=== PATIENT | male | born 1965 | race African-American/Black ===

== ENCOUNTER 2017-02-20 01:57 | Inpatient (IN) | payer MEDICAID ==
[2017-02-20] VITALS (9 sets, daily range): BP systolic 156–199; BP diastolic 94–116
[~2017-02-20] VITALS: Ht 180.3 cm; Wt 100.0 kg
[~2017-02-20 01:57] MED LIST: DIPH25CA85 PO; HTN MED; NITR2.5 PO
[2017-02-20 02:58] LABS: ANION GAP 11 mmol/L (8-16); CALCIUM, TOTAL 8.6 mg/dL (8.8-10.5); CARBON DIOXIDE 28 mmol/L (22-29); CHLORIDE 103 mmol/L (98-107); CREATININE 1.44 mg/dL (0.60-1.30); GLOMERULAR FILTR. RATE CALC > 60 mL/min (>60); POTASSIUM 3.3 mmol/L (3.5-5.1); SODIUM SERUM 142 mmol/L (136-145); UREA NITROGEN, BLOOD 17 mg/dL (7-18)
[2017-02-20 02:59] LABS: INR 1.1 (0.9-1.1)
[2017-02-20 03:07] LABS: BASOPHILS % (AUTO) 0.5 % (0.0-2.0); EOSINOPHILS % (AUTO) 2.9 % (1.0-6.0); HEMATOCRIT 37.9 % (41-53); HEMOGLOBIN 12.3 g/dL (13.5-17.5); LYMPHOCYTES # (AUTO) 2.2 K/uL (1.0-4.8); LYMPHOCYTES % (AUTO) 27.2 % (22.0-44.0); MEAN CORPUSCULAR HEMOGLOBIN 24.9 pg (26.0-34.0); MEAN CORPUSCULAR HGB CONC 32.3 G/dL (31.0-37.0); MEAN CORPUSCULAR VOLUME 77 fL (80-100); MONOCYTES # (AUTO) 0.7 K/uL (0.1-1.0); MONOCYTES % (AUTO) 9.3 % (2.0-9.0); NEUTROPHILS # (AUTO) 4.8 K/uL (1.8-7.7); NEUTROPHILS % (AUTO) 60.1 % (40.0-70.0); PLATELET COUNT (AUTO) 202 K/uL (150-450); RED BLOOD CELL COUNT(AUTO) 4.92 MIL/uL (4.50-5.90); RED CELL DISTRIBUTION WIDTH 17.4 % (11.5-14.5); WHITE BLOOD COUNT (AUTO) 7.9 K/uL (4.5-11.0)
[2017-02-20 03:23] LABS: ALANINE AMINOTRANSFERASE 21 U/L (12-78); ASPARTATE AMINOTRANSFERASE 19 U/L (15-37); BILIRUBIN,TOTAL 0.6 mg/dL (0.1-1.0); CREATINE KINASE MB 3.1 ng/mL (0-5); CREATINE KINASE, TOTAL 423 U/L (39-308); TOTAL PROTEIN, SERUM 8.1 g/dL (6.4-8.2)
[2017-02-20 03:31] LABS: B-TYPE NATRIURETIC PEPTIDE 128 pg/mL (0-100)
[2017-02-20] MEDS ORDERED: ASPIRIN 81 MG CHEWABLE TABLET PO ONE (03:45)
[2017-02-20] MEDS ORDERED: NITROGLYCERIN 2% (1 GM=INCH) PACKET TP ONE (03:45)
[2017-02-20 03:50] LABS: RBC MORPHOLOGY COMMENT ABNORMAL RBC MORPH
[2017-02-20] MEDS ORDERED: ACETAMINOPHEN 325 MG TABLET PO PRN ×2 (04:00→08:00)
[2017-02-20] MEDS ORDERED: ONDANSETRON HCL 4 MG/2 ML VIAL IVP PRN (04:00)
[2017-02-20] MEDS ORDERED: 0.9% SODIUM CHLORIDE 10 ML SYRINGE IVP PRN (04:00)
[2017-02-20] MEDS ORDERED: NITROGLYCERIN 2% (1 GM=INCH) PACKET TP PRN (08:00)
[2017-02-20] MEDS ORDERED: MORPHINE SULFATE 2 MG/ML SYRINGE IVP PRN (08:00)
[2017-02-20] MEDS ORDERED: NITROGLYCERIN 0.4 MG SUBLINGUAL TABLET #25 SL PRN (08:00)
[2017-02-20] MEDS ORDERED: ASPIRIN 325 MG TABLET PO SCH (09:00)
[2017-02-20] MEDS ORDERED: POTASSIUM CHLORIDE 20 MEQ ER TABLET PO ONE (09:00)
[2017-02-20] MEDS ORDERED: NIFEdipine 30 MG ER TABLET PO SCH (09:00)
[2017-02-20] MEDS: LISINOPRIL 10 MG TABLET PO SCH (10:09)
[2017-02-20] MEDS: ASPIRIN 81 MG EC TABLET PO SCH (10:10)
[2017-02-20] MEDS ORDERED: NIFEdipine 30 MG ER TABLET PO ONE (13:30)
[2017-02-20] MEDS: HydrALAZINE HCL 20 MG/ML VIAL IVP PRN ×2 (13:36→16:44)
[2017-02-20] MEDS: LABETALOL HCL 200 MG TABLET PO SCH (20:00)
[2017-02-21] VITALS (8 sets, daily range): BP systolic 149–181; BP diastolic 84–104
[2017-02-21] MEDS: ZOLPIDEM TARTRATE 5 MG TABLET PO PRN ×2 (01:28→20:10)
[2017-02-21 06:59] LABS: BASOPHILS % (AUTO) 0.8 % (0.0-2.0); EOSINOPHILS % (AUTO) 4.2 % (1.0-6.0); HEMATOCRIT 42.6 % (41-53); HEMOGLOBIN 13.6 g/dL (13.5-17.5); LYMPHOCYTES # (AUTO) 1.9 K/uL (1.0-4.8); LYMPHOCYTES % (AUTO) 22.8 % (22.0-44.0); MEAN CORPUSCULAR HEMOGLOBIN 24.8 pg (26.0-34.0); MEAN CORPUSCULAR HGB CONC 31.9 G/dL (31.0-37.0); MEAN CORPUSCULAR VOLUME 78 fL (80-100); MONOCYTES # (AUTO) 0.7 K/uL (0.1-1.0); MONOCYTES % (AUTO) 8.5 % (2.0-9.0); NEUTROPHILS # (AUTO) 5.2 K/uL (1.8-7.7); NEUTROPHILS % (AUTO) 63.7 % (40.0-70.0); PLATELET COUNT (AUTO) 203 K/uL (150-450); RED BLOOD CELL COUNT(AUTO) 5.48 MIL/uL (4.50-5.90); RED CELL DISTRIBUTION WIDTH 17.2 % (11.5-14.5); WHITE BLOOD COUNT (AUTO) 8.2 K/uL (4.5-11.0)
[2017-02-21 07:19] LABS: RBC MORPHOLOGY COMMENT ABNORMAL RBC MORPH
[2017-02-21 07:28] LABS: ALANINE AMINOTRANSFERASE 22 U/L (12-78); ANION GAP 13 mmol/L (8-16); ASPARTATE AMINOTRANSFERASE 16 U/L (15-37); CALCIUM, TOTAL 8.9 mg/dL (8.8-10.5); CARBON DIOXIDE 26 mmol/L (22-29); CHLORIDE 104 mmol/L (98-107); CREATININE 1.34 mg/dL (0.60-1.30); GLOMERULAR FILTR. RATE CALC > 60 mL/min (>60); POTASSIUM 3.5 mmol/L (3.5-5.1); SODIUM SERUM 143 mmol/L (136-145); TOTAL PROTEIN, SERUM 7.8 g/dL (6.4-8.2); UREA NITROGEN, BLOOD 13 mg/dL (7-18)
[2017-02-21] MEDS: ASPIRIN 81 MG EC TABLET PO SCH (08:23)
[2017-02-21] MEDS: LABETALOL HCL 200 MG TABLET PO SCH ×2 (08:23→20:10)
[2017-02-21] MEDS: LISINOPRIL 10 MG TABLET PO SCH (08:23)
[2017-02-21] MEDS ORDERED: NIFEdipine 30 MG ER TABLET PO SCH (09:00)
[2017-02-21] MEDS: HydrALAZINE HCL 20 MG/ML VIAL IVP PRN ×3 (11:57→17:59)
[2017-02-22 05:05] VITALS: BP 102/87
[2017-02-22 06:36] LABS: BASOPHILS % (AUTO) 0.8 % (0.0-2.0); EOSINOPHILS % (AUTO) 4.2 % (1.0-6.0); HEMATOCRIT 41.5 % (41-53); HEMOGLOBIN 13.4 g/dL (13.5-17.5); LYMPHOCYTES % (AUTO) 25.2 % (22.0-44.0); MEAN CORPUSCULAR HEMOGLOBIN 25.1 pg (26.0-34.0); MEAN CORPUSCULAR HGB CONC 32.3 G/dL (31.0-37.0); MEAN CORPUSCULAR VOLUME 78 fL (80-100); MONOCYTES # (AUTO) 0.7 K/uL (0.1-1.0); MONOCYTES % (AUTO) 9.6 % (2.0-9.0); NEUTROPHILS # (AUTO) 4.7 K/uL (1.8-7.7); NEUTROPHILS % (AUTO) 60.2 % (40.0-70.0); PLATELET COUNT (AUTO) 214 K/uL (150-450); RED BLOOD CELL COUNT(AUTO) 5.34 MIL/uL (4.50-5.90); RED CELL DISTRIBUTION WIDTH 16.6 % (11.5-14.5); WHITE BLOOD COUNT (AUTO) 7.8 K/uL (4.5-11.0)
[2017-02-22 07:35] VITALS: BP 128/97
[2017-02-22 07:40] LABS: ALANINE AMINOTRANSFERASE 17 U/L (12-78); ALBUMIN 3.9 g/dL (3.4-5.0); ANION GAP 12 mmol/L (8-16); ASPARTATE AMINOTRANSFERASE 15 U/L (15-37); BILIRUBIN,TOTAL 1.1 mg/dL (0.1-1.0); CARBON DIOXIDE 26 mmol/L (22-29); CHLORIDE 102 mmol/L (98-107); CREATININE 1.47 mg/dL (0.60-1.30); GLOMERULAR FILTR. RATE CALC > 60 mL/min (>60); POTASSIUM 3.3 mmol/L (3.5-5.1); SODIUM SERUM 140 mmol/L (136-145); UREA NITROGEN, BLOOD 16 mg/dL (7-18)
[2017-02-22] MEDS ORDERED: POTASSIUM CHLORIDE 20 MEQ ER TABLET PO ONE (08:00)
[2017-02-22] MEDS: LABETALOL HCL 200 MG TABLET PO SCH (08:06)
[2017-02-22] MEDS: ASPIRIN 81 MG EC TABLET PO SCH (08:06)
[2017-02-22] MEDS: LISINOPRIL 10 MG TABLET PO SCH (08:06)
[2017-02-22] MEDS ORDERED: NIFEdipine 90 MG ER TABLET PO SCH (09:00)
[2017-02-22 10:35] LABS: RBC MORPHOLOGY COMMENT ABNORMAL RBC MORPH
[2017-02-22 11:35] VITALS: BP 169/95
[2017-02-22] MEDS: HydrALAZINE HCL 20 MG/ML VIAL IVP PRN (11:54)
[2017-02-22 14:31] VITALS: BP 159/83
[2017-02-22] MEDS ORDERED: ASPI-1182 PO (15:40)
[2017-02-22] MEDS ORDERED: LABE200T PO (15:41)
[2017-02-22] MEDS ORDERED: NIFE90TA38 PO (15:42)
[2017-02-22] MEDS ORDERED: LISI-661 PO (15:42)
== END 2017-02-22 16:35 | disposition home or self-care (01) | DRG 199 ==
LOC: EMS 01:58 → 5N 03:50
PROVIDERS: ADMIT Internal Medicine; ATTEND Internal Medicine
DX: I10 Essential (primary) hypertension (principal); F32.9 Major depressive disorder, single episode, unspecified; E87.6 Hypokalemia; N28.9 Disorder of kidney and ureter, unspecified; F41.9 Anxiety disorder, unspecified; I20.9 Angina pectoris, unspecified; F10.20 Alcohol dependence, uncomplicated; F12.90 Cannabis use, unspecified, uncomplicated; F17.210 Nicotine dependence, cigarettes, uncomplicated; I25.2 Old myocardial infarction; Z87.820 Personal history of traumatic brain injury; Z91.19 Patient's noncompliance with other medical treatment and regimen
CPT/HCPCS: 80307; 83735; 93005; 93306; 99291; J0360

== ENCOUNTER 2017-07-29 12:41 | Emergency (ER) | payer MEDICAID ==
[~2017-07-29] VITALS: Ht 175.3 cm; Wt 99.5 kg
[~2017-07-29 12:41] MED LIST changes: +ASPI-1182 PO; -DIPH25CA85 PO; -HTN MED; +LABE200T PO; +LISI-661 PO; +NIFE90TA38 PO; -NITR2.5 PO
[2017-07-29] MEDS ORDERED: LOSA50TA37 PO (12:50)
[2017-07-29] MEDS ORDERED: AMLO-512 PO (12:50)
[2017-07-29] MEDS ORDERED: GABA-531 PO (12:50)
[2017-07-29] MEDS ORDERED: MIRT15 PO (12:50)
[2017-07-29 14:51] LABS: BASOPHILS % (AUTO) 0.9 % (0.0-2.0); EOSINOPHILS % (AUTO) 1.9 % (1.0-6.0); HEMATOCRIT 41.8 % (41-53); HEMOGLOBIN 13.4 g/dL (13.5-17.5); LYMPHOCYTES # (AUTO) 1.4 K/uL (1.0-4.8); LYMPHOCYTES % (AUTO) 18.9 % (22.0-44.0); MEAN CORPUSCULAR HGB CONC 32.1 G/dL (31.0-37.0); MEAN CORPUSCULAR VOLUME 75 fL (80-100); MONOCYTES # (AUTO) 0.7 K/uL (0.1-1.0); MONOCYTES % (AUTO) 9.5 % (2.0-9.0); NEUTROPHILS # (AUTO) 5.2 K/uL (1.8-7.7); NEUTROPHILS % (AUTO) 68.8 % (40.0-70.0); PLATELET COUNT (AUTO) 198 K/uL (150-450); RED BLOOD CELL COUNT(AUTO) 5.61 MIL/uL (4.50-5.90); RED CELL DISTRIBUTION WIDTH 17.1 % (11.5-14.5)
[2017-07-29 15:01] LABS: ANION GAP 11 mmol/L (8-16); CALCIUM, TOTAL 8.9 mg/dL (8.8-10.5); CARBON DIOXIDE 30 mmol/L (22-29); CHLORIDE 104 mmol/L (98-107); CREATININE 1.18 mg/dL (0.60-1.30); GLOMERULAR FILTR. RATE CALC > 60 mL/min (>60); GLUCOSE,RANDOM 103 mg/dL (70-110); POTASSIUM 3.6 mmol/L (3.5-5.1); SODIUM SERUM 145 mmol/L (136-145); UREA NITROGEN, BLOOD 16 mg/dL (7-18)
[2017-07-29 15:09] VITALS: BP 188/122
[2017-07-29 15:26] LABS: ALANINE AMINOTRANSFERASE 41 U/L (12-78); ALBUMIN 3.8 g/dL (3.4-5.0); ALKALINE PHOSPHATASE 98 U/L (46-116); ASPARTATE AMINOTRANSFERASE 30 U/L (15-37); BILIRUBIN,TOTAL 0.5 mg/dL (0.1-1.0); TOTAL PROTEIN, SERUM 8.2 g/dL (6.4-8.2)
[2017-07-29 15:37] LABS: B-TYPE NATRIURETIC PEPTIDE 122 pg/mL (0-100)
[2017-07-29 15:49] LABS: CREATINE KINASE MB 3.8 ng/mL (0-5); CREATINE KINASE, TOTAL 434 U/L (39-308)
[2017-07-29 15:55] LABS: APPEARANCE,URINE CLEAR (CLEAR); BILIRUBIN,URINE NEGATIVE (NEGATIVE); GLUCOSE, URINE (UA) NEGATIVE (NEGATIVE); KETONES,URINE NEGATIVE (NEGATIVE); LEUKOCYTE ESTERASE ,URINE NEGATIVE (NEGATIVE); NITRATE,URINE NEGATIVE (NEGATIVE); OCCULT BLOOD,URINE SMALL (NEGATIVE); PH,URINE 6.5 (5.0-8.0); PROTEIN,URINE SEE CONFIRM (NEGATIVE)
[2017-07-29 16:22] LABS: SULFOSALICYLIC ACID,URINE 4+ (Negative)
[2017-07-29 16:23] LABS: BACTERIA,URINE Rare /HPF (None Seen); SQUAMOUS EPITHELIAL CELL,UR Rare /LPF (None Seen); WBC,URINE 0-2 /HPF (0-5)
[2017-07-29 16:29] LABS: PLATELET MORPHOLOGY COMMENT LARGE PLTS PRESENT
== END 2017-07-29 16:32 | disposition left against medical advice (07) ==
LOC: EMS 12:42
DX: S00.83XA Contusion of other part of head, initial encounter (principal); I10 Essential (primary) hypertension; R79.89 Other specified abnormal findings of blood chemistry; F32.9 Major depressive disorder, single episode, unspecified; I25.2 Old myocardial infarction; F41.9 Anxiety disorder, unspecified; F17.210 Nicotine dependence, cigarettes, uncomplicated; Z79.899 Other long term (current) drug therapy; W18.39XA Other fall on same level, initial encounter; Y93.89 Activity, other specified; Y92.89 Other specified places as the place of occurrence of the external cause; Y99.8 Other external cause status
CPT/HCPCS: 70450; 93005; 99285